=== PATIENT | male | born 1970 ===

== ENCOUNTER 2022-10-11 20:13 | Emergency (ER) | payer SELFPAY ==
[~2022-10-11] VITALS: Ht 170 cm; Wt 88.0 kg
[2022-10-11 20:21] VITALS: BP 136/84; TEMP 98
[2022-10-11] MEDS ORDERED: ELIQUIS 5MG PO ×2 (20:21→21:51)
[2022-10-11] MEDS ORDERED: ALDACTONE 25MG25 M1 PO ×2 (20:21→21:51)
[2022-10-11 21:57] VITALS: PULSE 75
== END 2022-10-11 21:57 | disposition home or self-care (01) ==
LOC: COL.ER 20:13
DX: Z76.0 Encounter for issue of repeat prescription (principal); I25.10 Atherosclerotic heart disease of native coronary artery without angina pectoris; Z79.01 Long term (current) use of anticoagulants; Z28.310 Unvaccinated for COVID-19